=== PATIENT | male | born 1990 | race African-American/Black ===

== ENCOUNTER 2018-11-09 10:16 | Emergency (ER) | payer SELFPAY ==
[~2018-11-09] VITALS: Ht 175.3 cm; Wt 71.7 kg
[2018-11-09 11:55] VITALS: BP 129/74
--- NOTE | 2018-11-09 12:25 | PHYS DOC ---
Past Medical History Past Medical History: No Pertinent History Past Surgical History: No Surgical History Alcohol Use: Occasionally Drug Use: None Adult General Chief Complaint Chief Complaint: EYE PROBLEMS HPI HPI Patient is a 28 year old AA male who presents to the ER with complaints of redness and swelling to his right upper eyelid since awakening this morning. Pt denies any drainage, vision changes, or known injury. He denies any pain at this time. Review of Systems Review of Systems Constitutional: Denies fever or chills [] Eyes: Denies change in visual acuity; see HPI Neurologic: Denies headache Physical Exam Physical Exam Constitutional: Well developed, well nourished, no acute distress, non-toxic appearance. [] HENT: Normocephalic, atraumatic, bilateral external ears normal, oropharynx moist, no oral exudates, nose normal. [] Eyes: PERRLA, EOMI, conjunctiva normal, no discharge; R upper eyelid redness and swelling with stye present, no drainage. [] Neck: Normal range of motion, no tenderness, supple, no stridor. [] Cardiovascular:Heart rate regular rhythm, no murmur [] Lungs & Thorax: Bilateral breath sounds clear to auscultation [] Skin: Warm, dry, no erythema, no rash. [] Neurologic: Alert and oriented X 3, no focal deficits noted. [] Psychologic: Affect normal, judgement normal, mood normal. [] Current Patient Data Vital Signs Vital Signs Date Time Temp Pulse Resp B/P (MAP) Pulse Ox O2 Delivery O2 Flow Rate FiO2 11/09/18 11:55 97.8 87 16 129/74 (92) 100 Room Air 97.8 EKG EKG [] Radiology/Procedures Radiology/Procedures [] Course & Med Decision Making Course & Med Decision Making Pertinent Labs and Imaging studies reviewed. (See chart for details) [] Dragon Disclaimer Dragon Disclaimer This electronic medical record was generated, in whole or in part, using a voice recognition dictation system. Departure Departure Impression: Primary Impression: Hordeolum of upper eyelid Disposition: 01 HOME, SELF-CARE Condition: STABLE Referrals: UNKNOWN PCP NAME (PCP) Patient Instructions: Sty Additional Instructions: Apply warm, moist washcloths to eyes needed for comfort. Recommend use of baby shampoo to wash eyelids. Follow-up with your primary care doctor in 1-2 days. Return to the emergency room if your symptoms worsen. ONOFRE KOEHLER APRN Nov 09, 2018 12:25
== END 2018-11-09 12:49 | disposition home or self-care (01) ==
LOC: ER 10:16
DX: H00.011 Hordeolum externum right upper eyelid (principal)
CPT/HCPCS: 99281